=== PATIENT | male | born 1960 | race Caucasian/White ===

== ENCOUNTER 2017-11-29 15:25 | Observation (INO) | payer OTHER, BC ==
[~2017-11-29] VITALS: Ht 180.3 cm; Wt 92.5 kg
[~2017-11-29 15:25] MED LIST: ADULT LOW DOSE81 M1 PO; LISINOPRIL5 MG PO; LORTAB 5-325 M1 EACH PO; LOVENOX30 MG/0.3 SC; METOPROLOL SUCC50 MG PO; OMEPRAZOLE40 M1 PO; OXYCONTIN20 MG PO; ULTRAM50 MG PO; VITAMIN D2000 INTUN PO
[2017-11-29 16:28] LABS: HEMATOCRIT 44.2 % (38.0-50.0); HEMOGLOBIN 15.5 G/DL (12.5-16.6); MCH 31.9 PG (29.0-34.0); MCHC 35.1 G/DL (30.0-36.0); MCV 90.9 FL (86-99); PLATELET COUNT 185 K/uL (156-360); RBC DIS.WIDTH-CV 12.1 % (11.8-14.6); RBC DIS.WIDTH-SD 40.7 % (39-53); RED BLOOD COUNT 4.86 M/uL (4.00-5.50); WHITE BLOOD COUNT 9.2 K/uL (4.1-10.2)
[2017-11-29 16:39] LABS: CHLORIDE 107 mEq/L (99-109); POTASSIUM 4.2 mEq/L (3.7-5.4); SODIUM 140 mEq/L (136-147)
[2017-11-29 16:41] LABS: GLUCOSE 100 mg/dL (70-99)
[2017-11-29 16:45] LABS: CREATININE 1.2 mg/dL (0.6-1.3); GFR ESTIMATE (CALCULATED) > 59 mL/min/ (58.99-99999)
[2017-11-29 16:46] LABS: UREA NITROGEN (BUN) 23 mg/dL (9-23)
[2017-11-29 16:47] LABS: CREATINE KINASE 139 IU/L (1-294)
[2017-11-29 16:54] LABS: TROP-I INTERPRETATION NEGATIVE; TROPONIN-I < 0.01 ng/mL (0.0-0.30)
[2017-11-29] MEDS ORDERED: ADVIL200 MG PO (17:17)
[2017-11-29 17:38] LABS: APPEARANCE CLEAR ((CLEAR)); BILIRUBIN NEGATIVE; BLOOD NEGATIVE; COLOR YELLOW ((YELLOW)); GLUCOSE (STRIP) NEGATIVE; KETONES 20; LEUKOCYTES NEGATIVE; NITRITE NEGATIVE; PROTEIN (STRIP) NEGATIVE; UCUL ADDED? NO; UROBILINOGEN 0.2 MG/DL (0.2-1.0)
[2017-11-29 21:26] VITALS: BP 178/96
[2017-11-29 22:41] LABS: TROP-I INTERPRETATION NEGATIVE; TROPONIN-I 0.01 ng/mL (0.0-0.30)
[2017-11-30 03:46] VITALS: BP 121/71
[2017-11-30 05:08] LABS: HEMOGLOBIN 14.1 G/DL (12.5-16.6); MCH 31.2 PG (29.0-34.0); MCHC 33.6 G/DL (30.0-36.0); MCV 92.9 FL (86-99); PLATELET COUNT 175 K/uL (156-360); RBC DIS.WIDTH-CV 12.4 % (11.8-14.6); RBC DIS.WIDTH-SD 42.4 % (39-53); RED BLOOD COUNT 4.52 M/uL (4.00-5.50)
[2017-11-30 05:30] LABS: TROP-I INTERPRETATION NEGATIVE; TROPONIN-I < 0.01 ng/mL (0.0-0.30)
[2017-11-30 05:32] LABS: CHLORIDE 108 MEQ/L (99-109); CREATININE 0.8 MG/DL (0.6-1.3); GFR ESTIMATE (CALCULATED) > 59 mL/min/ (58.99-99999); GLUCOSE 93 mg/dL (70-99); POTASSIUM 3.8 MEQ/L (3.7-5.4); SODIUM 139 MEQ/L (136-147); UREA NITROGEN (BUN) 21 mg/dL (9-23)
[2017-11-30 08:18] VITALS: BP 124/78
== END 2017-11-30 10:55 | disposition home or self-care (01) ==
LOC: EME 15:25 → EDOF 19:16 → ENRESERV 19:34 → 4SOUTH 21:10 → ENPENDDIS 11-30 10:48 → 4SOUTH 11-30 10:55
PROVIDERS: Emergency Medicine; Hospitalist
DX: T75.4XXA Electrocution, initial encounter (principal); T23.121A Burn of first degree of single right finger (nail) except thumb, initial encounter; M25.512 Pain in left shoulder; W86.8XXA Exposure to other electric current, initial encounter; Y93.89 Activity, other specified; Y92.89 Other specified places as the place of occurrence of the external cause; Y99.0 Civilian activity done for income or pay; I10 Essential (primary) hypertension; I89.0 Lymphedema, not elsewhere classified; I83.11 Varicose veins of right lower extremity with inflammation; Z82.49 Family history of ischemic heart disease and other diseases of the circulatory system; Z80.0 Family history of malignant neoplasm of digestive organs
CPT/HCPCS: 70450; 73020; 80048; 81003; 82550; 83874 90; 84484; 85027; 93005; 99281; 99285; G0378; J1885; J7030